=== PATIENT | male | born 1975 | race Caucasian/White ===

== ENCOUNTER 2016-12-21 13:43 | Emergency (ER) | payer SELFPAY | END 2016-12-21 16:45 | disposition home or self-care (01) | LOC: ERS 13:43 | DX: M19.041 Primary osteoarthritis, right hand (principal); F41.9 Anxiety disorder, unspecified; F31.9 Bipolar disorder, unspecified; F20.9 Schizophrenia, unspecified; F17.210 Nicotine dependence, cigarettes, uncomplicated; Z85.820 Personal history of malignant melanoma of skin | CPT/HCPCS: 99283 ==

== ENCOUNTER 2017-01-10 09:18 | Emergency (ER) | payer SELFPAY ==
[2017-01-10] MEDS ORDERED: Acetaminophen 500 MG TAB ONE (09:52)
== END 2017-01-10 09:54 ==
LOC: ERS 09:18
DX: M25.531 Pain in right wrist (principal); Z02.89 Encounter for other administrative examinations; F41.9 Anxiety disorder, unspecified; F31.9 Bipolar disorder, unspecified; F20.9 Schizophrenia, unspecified; F17.210 Nicotine dependence, cigarettes, uncomplicated
CPT/HCPCS: 99283

== ENCOUNTER 2018-01-12 20:45 | Emergency (ER) | payer SELFPAY ==
[2018-01-12] MEDS ORDERED: Ketorolac Tromethamine 30 MG/ML VIAL ONE (21:50)
[2018-01-12] MEDS ORDERED: Diazepam 5 MG TAB ONE (21:54)
[2018-01-12 22:53] LABS: Bilirubin Small (Negative); Blood, Urine Negative (Negative); Clarity CLEAR (Clear); Glucose, Urine (Dipstick) Negative (Negative); Leukocyte Trace (Negative); Nitrite Negative (Negative); Protein, Urine (Dipstick) Trace mg/dL (Neg-Trace)
--- NOTE | 2018-01-12 22:54 | RAD ---
LUMBAR SPINE THREE VIEWS: 01/12/18 HISTORY: Pain. COMPARISON: None. FINDINGS: Five lumbar type vertebral bodies. Vertebral body height is maintained. No fracture. There is straigh tening of normal lumbar lordosis which is presumed to be due to muscle spasm. Disc space heights are preserved. Minimal osteophyte formation along the superior end plate of L4 and L5. IMPRESSION: No radiographic evidence of fracture or significant degenerative change. POS: [id number]
[2018-01-12 22:55] LABS: Bacteria/HPF None Seen HPF (None Seen); Hyaline Casts/LPF 0-3 HYALINE CAST LPF (0-3 Hyaline); Squamous Epithelial None Seen HPF (0-3); WBC/HPF 0-3 HPF (0-3)
--- NOTE | 2018-01-12 22:55 | RAD ---
CHEST ONE VIEW: 01/12/18 COMPARISON: 08/18/15. HISTORY: Pain. FINDINGS: Normal cardiac silhouette. Lungs and pleural spaces are clear. No pneumothorax or osseous abnormaliti es. IMPRESSION: No acute cardiopulmonary process. POS: [facility]
[2018-01-12 22:57] LABS: RBC/HPF 0-3 HPF (0-3)
[2018-01-12 23:02] LABS: Amphetamine Detected (NotDetected); Barbiturates Screen Not Detected (NotDetected); Benzodiazepine Screen Not Detected (NotDetected); Cocaine Metabolite Screen Not Detected (NotDetected); Medtox Control Line Valid? VALID (VALID); Medtox Reader # READER 1; Methadone Not Detected (NotDetected); Methamphetamine Not Detected (NotDetected); Opiate Screen Not Detected (NotDetected); Oxycodone Screen Not Detected (NotDetected); Phencyclidine (PCP) Not Detected (NotDetected); THC/Cannabinoid Screen Detected (NotDetected); Tricyclic Screen Not Detected (NotDetected)
== END 2018-01-13 00:07 ==
LOC: ERS 20:45
DX: M54.5 Low back pain (principal); G89.29 Other chronic pain; F15.10 Other stimulant abuse, uncomplicated; F31.9 Bipolar disorder, unspecified; F17.210 Nicotine dependence, cigarettes, uncomplicated
CPT/HCPCS: 71045; 72100; 80306; 81003; 81015; 96372; J1885

== ENCOUNTER 2018-06-14 11:40 | Emergency (ER) | payer SELFPAY ==
--- NOTE | 2018-06-14 13:30 | RAD ---
LEFT FOREARM 2 VIEWS: HISTORY: Injury with pain. FINDINGS: No evidence of fracture identified. No osseous abnormality is seen. IMPRESSION: No acute finding. POS: [facility]
== END 2018-06-14 13:36 | disposition home or self-care (01) ==
LOC: SCSER 11:40
DX: L70.9 Acne, unspecified (principal); L29.9 Pruritus, unspecified; F41.9 Anxiety disorder, unspecified; F31.9 Bipolar disorder, unspecified; F20.9 Schizophrenia, unspecified; Z71.6 Tobacco abuse counseling; F17.210 Nicotine dependence, cigarettes, uncomplicated
CPT/HCPCS: 99406

== ENCOUNTER 2019-08-31 22:13 | Emergency (ER) | payer SELFPAY ==
[2019-08-31] MEDS ORDERED: Ondansetron ODT 4 MG TAB ONE (23:45)
[2019-09-01 00:04] LABS: #Basophils 0.1 thou/uL (0.0-0.2); #Eosinphils 0.3 thou/uL (0.0-0.7); #Lymphocytes 3.2 thou/uL (1.20-3.40); #Monocytes 0.7 thou/uL (0.11-0.59); #Neutrophils 4.8 thou/uL (1.40-6.50); %Basophils 0.7 % (0.0-1.0); %Eosinophils 2.8 % (0.0-10.0); %Lymphocytes 35.5 % (21.0-51.0); Hemoglobin 14.8 g/dL (14.0-18.0); Mean Corpuscular Hemoglobin 33.6 pg (27.0-31.0); Mean Corpuscular Volume 96.1 fL (78.0-98.0); Mean Platelet Volume 7.6 fL (7.4-10.4); Platelet Count 247 thou/uL (130-400); RBC Distribution Width 12.1 % (11.5-14.5)
[2019-09-01 00:27] LABS: ALT (SGPT) 16 U/L (8-55); AST (SGOT) 10 U/L (5-34); Albumin 3.8 g/dL (3.5-5.0); Alkaline Phosphatase 73 U/L (40-110); Anion Gap 10 mmol/L (10-20); BUN (Urea Nitrogen) 14 mg/dL (8.9-20.6); Bilirubin, Total 0.2 mg/dL (0.2-1.2); Calc. Creatinine Clearance 0 mL/min (70-130); Calcium 8.8 mg/dL (7.8-10.44); Carbon Dioxide 27 mmol/L (22-29); Chloride 105 mmol/L (98-107); Estimated GFR-MDRD Greater than 90; Globulin 2.6 g/dL (2.4-3.5); Glucose 90 mg/dL (70-105); Lipase 59 U/L (8-78); Potassium 3.9 mmol/L (3.5-5.1); Protein, Total 6.4 g/dL (6.0-8.3); Sodium 138 mmol/L (136-145)
== END 2019-09-01 01:03 | disposition home or self-care (01) ==
LOC: ERS 22:13
DX: R11.2 Nausea with vomiting, unspecified (principal); R10.30 Lower abdominal pain, unspecified; R10.816 Epigastric abdominal tenderness; S80.812A Abrasion, left lower leg, initial encounter; F20.9 Schizophrenia, unspecified; F31.9 Bipolar disorder, unspecified; F41.9 Anxiety disorder, unspecified; F17.210 Nicotine dependence, cigarettes, uncomplicated; W54.0XXA Bitten by dog, initial encounter
CPT/HCPCS: 36415; 80053; 83690; 85025; 99284; Q0162

== ENCOUNTER 2022-09-06 02:00 | Emergency (ER) | payer SELFPAY | END 2022-09-06 02:20 | LOC: ERS 02:00 | DX: Z02.89 Encounter for other administrative examinations (principal); F17.210 Nicotine dependence, cigarettes, uncomplicated | CPT/HCPCS: 99283 ==

== ENCOUNTER 2022-10-22 14:13 | Emergency (ER) | payer SELFPAY ==
[2022-10-22] MEDS ORDERED: LORazepam 2 MG/ML SYR.(CARPUJECT) ONE (15:25)
[2022-10-22 15:28] LABS: #Eosinphils 0.1 thou/uL (0.0-0.7); #Monocytes 0.8 thou/uL (0.11-0.59); #Neutrophils 6.3 thou/uL (1.40-6.50); %Basophils 0.3 % (0.0-1.0); %Eosinophils 0.6 % (0.0-10.0); %Lymphocytes 19.2 % (21.0-51.0); %Monocytes 8.5 % (0.0-10.0); %Neutrophils 71.2 % (42.0-75.0); Hematocrit 46.4 % (42.0-52.0); Hemoglobin 16.2 g/dL (14.0-18.0); Mean Corpuscular HGB CONC 34.9 g/dL (32.0-36.0); Mean Corpuscular Hemoglobin 32.8 pg (27.0-31.0); Mean Corpuscular Volume 93.9 fl (78.0-98.0); Mean Platelet Volume 9.4 fL (7.4-10.4); Platelet Count 315 10x3/uL (130-400); RBC Distribution Width 12.8 % (11.5-14.5); Red Blood Cell (RBC) Count 4.94 mill/uL (4.70-6.10); White Blood Cell (WBC) Count 8.8 10x3/uL (4.8-10.8)
[2022-10-22 15:51] LABS: ALT (SGPT) 40 U/L (8-55); AST (SGOT) 31 U/L (5-34); Acetaminophen Less than 10 mcg/mL (10.0-30.0); Albumin 4.6 g/dL (3.5-5.0); Alcohol Less than 10.0 mg/dL (Less than 10); Alkaline Phosphatase 79 U/L (40-110); Anion Gap 14 mmol/L (10-20); BUN (Urea Nitrogen) 18 mg/dL (8.9-20.6); Bilirubin, Total 1.1 mg/dL (0.2-1.2); CK (CPK) 529 U/L (30-200); Calc. Creatinine Clearance 0 mL/min (70-130); Calcium 9.5 mg/dL (7.8-10.44); Carbon Dioxide 26 mmol/L (22-29); Chloride 104 mmol/L (98-107); Estimated GFR 62; Globulin 3.4 g/dL (2.4-3.5); Glucose 100 mg/dL (70-105); Potassium 3.7 mmol/L (3.5-5.1); Salicylate Less than 8.0 mg/dL (15.0-30.0); Sodium 140 mmol/L (136-145)
[2022-10-22 16:00] LABS: Troponin I Less than 0.010 ng/mL (< 0.028)
[2022-10-22 17:00] LABS: Amphetamine Detected (NotDetected); Barbiturates Screen Not Detected (NotDetected); Benzodiazepine Screen Not Detected (NotDetected); Cocaine Metabolite Screen Not Detected (NotDetected); Methadone Not Detected (NotDetected); Methamphetamine Detected (NotDetected); Opiate Screen Not Detected (NotDetected); Oxycodone Screen Not Detected (NotDetected); Phencyclidine (PCP) Not Detected (NotDetected); THC/Cannabinoid Screen Not Detected (NotDetected); Tricyclic Screen Not Detected (NotDetected)
[2022-10-22] MEDS ORDERED: Haloperidol Lactate 5 MG/ML VIAL ONE (17:02)
[2022-10-23] MEDS ORDERED: Acetaminophen 500 MG TAB ONE (00:44)
== END 2022-10-23 09:40 | disposition home or self-care (01) ==
LOC: ERS 14:13
DX: F15.10 Other stimulant abuse, uncomplicated (principal); F22 Delusional disorders; F17.210 Nicotine dependence, cigarettes, uncomplicated
CPT/HCPCS: 36415; 36416; 70450; 80053; 80306; 80307; 82550; 84443; 84484; 85025; 93005; 96361; 96374; 96375; J1630; J2060

== ENCOUNTER 2023-01-20 11:08 | Emergency (ER) | payer SELFPAY ==
[2023-01-20 12:00] LABS: #Eosinphils 0.1 thou/uL (0.0-0.7); #Monocytes 0.7 thou/uL (0.11-0.59); %Basophils 0.4 % (0.0-1.0); %Eosinophils 1.1 % (0.0-10.0); %Lymphocytes 22.9 % (21.0-51.0); %Monocytes 9.3 % (0.0-10.0); Hematocrit 42.3 % (42.0-52.0); Mean Corpuscular HGB CONC 35.5 g/dL (32.0-36.0); Mean Corpuscular Hemoglobin 33.4 pg (27.0-31.0); Mean Corpuscular Volume 94.2 fl (78.0-98.0); Mean Platelet Volume 9.7 fL (7.4-10.4); Platelet Count 302 10x3/uL (130-400); RBC Distribution Width 12.8 % (11.5-14.5); Red Blood Cell (RBC) Count 4.49 mill/uL (4.70-6.10); White Blood Cell (WBC) Count 7.5 10x3/uL (4.8-10.8)
[2023-01-20] MEDS ORDERED: OLANZapine 5 MG TAB ONE (12:01)
[2023-01-20 12:24] LABS: Acetaminophen Less than 10 mcg/mL (10.0-30.0); Alcohol Less than 10.0 mg/dL (Less than 10); Salicylate Less than 8.0 mg/dL (15.0-30.0)
[2023-01-20 12:29] LABS: ALT (SGPT) 17 U/L (8-55); AST (SGOT) 19 U/L (5-34); Albumin 4.5 g/dL (3.5-5.0); Alkaline Phosphatase 66 U/L (40-110); Anion Gap 15 mmol/L (10-20); BUN (Urea Nitrogen) 16 mg/dL (8.9-20.6); Bilirubin, Total 0.6 mg/dL (0.2-1.2); Calc. Creatinine Clearance 0 mL/min (70-130); Calcium 9.2 mg/dL (7.8-10.44); Carbon Dioxide 23 mmol/L (22-29); Chloride 106 mmol/L (98-107); Estimated GFR 89; Globulin 3.1 g/dL (2.4-3.5); Glucose 115 mg/dL (70-105); Potassium 3.6 mmol/L (3.5-5.1); Protein, Total 7.6 g/dL (6.0-8.3); Sodium 140 mmol/L (136-145)
== END 2023-01-20 20:49 | disposition home or self-care (01) ==
LOC: ERS 11:08 → EEVIPCON 11:08 → ERS 20:49
DX: F22 Delusional disorders (principal); F17.210 Nicotine dependence, cigarettes, uncomplicated
CPT/HCPCS: 36415; 80053; 80307; 84443; 85025; 93005